=== PATIENT | male | born 2000 | race Caucasian/White ===

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

== ENCOUNTER 2020-11-30 15:02 | Emergency (ER) | payer MEDICAID ==
[~2020-11-30] VITALS: Ht 180.3 cm; Wt 90.0 kg
[2020-11-30 15:10] VITALS: BP 139/92
[2020-11-30] MEDS ORDERED: ACETAMINOPHEN 325MG TABLET PO ONE (15:30)
[2020-11-30] MEDS ORDERED: IBUPROFEN 600MG TABLET PO ONE (15:30)
[2020-11-30] MEDS ORDERED: NAPR-1176 MT (16:35)
== END 2020-11-30 17:00 | disposition home or self-care (01) ==
LOC: ER 15:02
DX: M25.572 Pain in left ankle and joints of left foot (principal); M79.672 Pain in left foot; F12.10 Cannabis abuse, uncomplicated; W10.8XXA Fall (on) (from) other stairs and steps, initial encounter; Y93.89 Activity, other specified; Y92.89 Other specified places as the place of occurrence of the external cause
CPT/HCPCS: 73610; 73630; 99284